=== PATIENT | female | born 1960 | race Caucasian/White ===

== ENCOUNTER 2017-06-23 13:27 | Outpatient (CLI) | payer BC | END 2017-06-23 13:28 | disposition home or self-care (01) | LOC: BICMAMMO 13:27 | PROVIDERS: ATTEND Obstetrics & Gynecology | DX: Z12.31 Encounter for screening mammogram for malignant neoplasm of breast (principal) | CPT/HCPCS: 77063; 77067 ==

== ENCOUNTER 2017-06-25 08:42 | Outpatient (CLI) | payer BC | END 2017-06-25 08:43 | disposition home or self-care (01) | LOC: BICMAMMO 08:42 | PROVIDERS: ATTEND Internal Medicine | DX: Z13.820 Encounter for screening for osteoporosis (principal); M85.80 Other specified disorders of bone density and structure, unspecified site | CPT/HCPCS: 77080 ==

== ENCOUNTER 2018-07-01 09:03 | Outpatient (CLI) | payer BC ==
--- NOTE | 2018-07-01 10:20 | BD ---
BONE DENSITOMETRY USING DEXA: Date: 07/01/18 HISTORY: Postmenopausal screening for osteoporosis. FINDINGS: Lumbar Spine: BMD (g/cm2) L1 0.781 T-Score: -1.9 Z-Score: -0.7 L2 0.970 T-Score: -0.5 Z-Score: 0.8 L3 1.050 T-Score: -0.3 Z-Score: 1.1 L4 0.999 T-Score: -0.6 Z-Score: 0.9 L1-L4 0.959 T-Score: -0.8 Z-Score: 0.6 Femoral Neck: 0.633 T-Score: -1.9 Z-Score: -0.7 Total Femur: 0.800 T-Score: -1.2 Z-Score: -0.2 The 10 year fracture risk for a major osteoporotic fracture is 7.8% and for a hip fracture is 1%. IMPRESSION: Osteopenia. POS: [facility]
== END 2018-07-01 09:04 | disposition home or self-care (01) ==
LOC: BICMAMMO 09:03
PROVIDERS: ATTEND Obstetrics & Gynecology
DX: M81.0 Age-related osteoporosis without current pathological fracture (principal); M85.89 Other specified disorders of bone density and structure, multiple sites
CPT/HCPCS: 77080

== ENCOUNTER 2021-02-06 08:26 | Outpatient (CLI) | payer BC | END 2021-02-06 08:27 | disposition home or self-care (01) | LOC: BICMAMMO 08:26 | PROVIDERS: ATTEND Internal Medicine | DX: Z13.820 Encounter for screening for osteoporosis (principal); Z78.0 Asymptomatic menopausal state; M85.89 Other specified disorders of bone density and structure, multiple sites | CPT/HCPCS: 77080 ==